=== PATIENT | male | born 1955 | race American Indian/Alaskan Native ===

== ENCOUNTER 2018-06-30 00:47 | Inpatient (IN) | payer MEDICAID ==
[2018-06-30] MEDS ORDERED: NACL 0.9% 1000 ML 1,000 ML IV ONE (01:11)
[2018-06-30 01:47] LABS: Basophils % (Auto) 0.7 % (0.0-1.8); Eosinophils # (Auto) 0.1 K/mm3 (0.0-0.4); Eosinophils % (Auto) 1.1 % (0.0-4.3); Hematocrit 43.2 % (35.5-45.6); Hemoglobin 14.1 gm/dl (11.8-15.2); Lymphocytes # (Auto) 1.3 K/mm3 (1.2-5.4); Lymphocytes % (Auto) 19.9 % (13.4-35.0); Mean Corpuscular HGB Conc 33 % (32-34); Mean Corpuscular Hemoglobin 27 pg (28-32); Mean Corpuscular Volume 82 fl (84-94); Monocytes # (Auto) 0.7 K/mm3 (0.0-0.8); Monocytes % (Auto) 9.9 % (0.0-7.3); Platelet Count 194 K/mm3 (140-440); Red Blood Count 5.26 M/mm3 (3.65-5.03); Red Cell Distribution Width 16.9 % (13.2-15.2)
[2018-06-30 02:09] LABS: Alanine Aminotransferase 14 units/L (7-56); Albumin 3.8 g/dL (3.9-5); BUN/Creatinine Ratio 26; Blood Urea Nitrogen 21 mg/dL (9-20); Calcium 9.8 mg/dL (8.4-10.2); Hemolysis Index 8
[2018-06-30] MEDS ORDERED: ZOFRAN ONE (03:22)
[2018-06-30] MEDS ORDERED: ZOFRAN IV ONE (03:28)
--- NOTE | 2018-06-30 03:35 | Emergency Department Report ---
ED Abdominal Pain HPI - General Chief Complaint: Abdominal Pain Stated Complaint: NOT EATING STOMACH PAIN Time Seen by Provider: 06/30/18 02:21 Source: patient, family Mode of arrival: Ambulatory Limitations: Physical Limitation, Other (mental state) - History of Present Illness Initial Comments: H/o obtained from Niece. For the past couple of weeks, pt has had a poor appetite. Today he was complaining of abd pain and started vomiting. So she brought him to the ER. Pt is currently being treated for depression. Wears dupens. Seen at [facility] last week for a penile ulcer and has been given urology follow up. Afebrile. When I ask the patient questions, he stares at me and doesn't respond. - Related Data Allergies Allergy/AdvReac Type Severity Reaction Status Date / Time No Known Allergies Allergy Unverified 06/30/18 00:57 ED Review of Systems ROS: Stated complaint: NOT EATING STOMACH PAIN Other details as noted in HPI Comment: Unobtainable due to pts medical conditions ED Past Medical Hx - Past Medical History Previous Medical History?: Yes Hx Hypertension: Yes Hx Seizures: Yes Hx Psychiatric Treatment: Yes (depression) Additional medical history: benign prostatic hyperplasia, congenital renal failure, UTI, ESBL - Surgical History Past Surgical History?: Yes Additional Surgical History: back - Social History Smoking Status: Current Every Day Smoker Substance Use Type: Alcohol ED Physical Exam - General Limitations: Physical Limitation, Other (mental state) General appearance: alert, in no apparent distress - Head Head exam: Present: atraumatic, normocephalic - Eye Eye exam: Present: normal appearance - ENT ENT exam: Present: mucous membranes moist - Neck Neck exam: Present: normal inspection - Respiratory Respiratory exam: Present: normal lung sounds bilaterally. Absent: respiratory distress - Cardiovascular Cardiovascular Exam: Present: regular rate, normal rhythm. Absent: systolic murmur, diastolic murmur, rubs, gallop - GI/Abdominal GI/Abdominal exam: Present: soft, normal bowel sounds. Absent: distended, tenderness, guarding, rebound - Rectal Rectal exam: Present: deferred - Extremities Exam Extremities exam: Present: normal inspection - Back Exam Back exam: Present: normal inspection - Neurological Exam Neurological exam: Present: alert - Psychiatric Psychiatric exam: Present: normal affect, normal mood - Skin Skin exam: Present: warm, dry, intact, normal color. Absent: rash ED Course Vital Signs 06/30/18 00:49 Temperature 98.3 F Pulse Rate 108 H Respiratory 18 Rate Blood Pressure 104/67 O2 Sat by Pulse 97 Oximetry ED Medical Decision Making - Lab Data Result diagrams: 06/30/18 01:28 06/30/18 01:28 - Radiology Data Radiology results: report reviewed - Medical Decision Making 63 yo male wiht pmhx depression, UTI, renal failure that p/w abd pain and vomiting. Pt is a poor historian. He will not talk to me in the ER. VS significant for an initial HR of 108. Labs are unremarkable. CT A/P shows no acute intraabdominal pathology. However, it did show an incidental RLL PE, which was confirmed on CT Chest. NO cause of the patient's abd pain has been found at this time. I am still waiting for the patient to provide a urine sample. He will be started on heparin and admitted in the interim. I have ordered an EKG/troponin, given the new dx of PE. - Differential Diagnosis sbo, pancreatitis, uti, sepsis, malignancy, gastroenteritis, diverticulitis Critical care attestation.: If time is entered above; I have spent that time in minutes in the direct care of this critically ill patient, excluding procedure time. ED Disposition Clinical Impression: Pulmonary embolus, Abdominal pain Disposition: DC-[id number] OP ADMIT IP TO THIS HOSP Is pt being admited?: Yes Does the pt Need Aspirin: No Condition: Stable Referrals: PRIMARY CARE, [Primary Care Provider] - 3-5 Days
--- NOTE | 2018-06-30 04:32 | Cat Scan Report ---
FINAL REPORT EXAM: CT ABDOMEN PELVIS W CON HISTORY: abd pain TECHNIQUE: Routine axial imaging was obtained of the abdomen and pelvis following the intravenous injection of 100 cc of Omnipaque 300. Delayed imaging was obtained through the kidneys ureters and bladder. Sagittal and coronal reconstructions were reviewed. FINDINGS: Images through the lung bases reveal several partially occlusive emboli in the right lower lobe pulmonary arteries. There are no infiltrates or effusions otherwise. The liver is normal size and reveal several benign-appearing cysts in both hepatic lobes measuring up to 7.9 mm in diameter. The gallbladder and biliary tree appear normal. The pancreas, spleen, and adrenal glands appear normal. The kidneys reveal small cortical cysts in the right kidney measuring with 12 millimeters in diameter. There is no evidence of hydronephrosis. The abdominal aorta is normal in caliber. The bowel loops are normal in caliber and course. The appendix is not enlarged. There is a small umbilical hernia containing omental fat. There is additional small supraumbilical midline hernia containing omental fat. Within the left-sided abdominal wall musculature is a benign intramuscular lipoma measuring 8.4 cm x 2.1 cm x 11.3 cm. In the pelvis there are multiple screws and plates from previous ORIF with multiple remote fractures. The prostate gland is mildly enlarged. The bladder appears normal. Free fluid is not seen. The skeletal structures otherwise reveal additional hardware in the lower lumbar spine. IMPRESSION: Several partially occlusive emboli in the right lower lobe pulmonary arteries. No acute process in the abdomen and pelvis otherwise. Small benign-appearing cysts in the liver and right kidney. Small umbilical hernia and additional supraumbilical abdominal hernia, both which contain omental fat. Extensive postsurgical changes involving the pelvis and lower lumbar spine from previous ORIF from multiple fractures. Left-sided anterior abdominal wall intramuscular lipoma. Mild prostatic enlargement.
--- NOTE | 2018-06-30 05:41 | Cat Scan Report ---
FINAL REPORT EXAM: CT ANGIO CHEST HISTORY: concern for PE, incidental finding on CT A/P TECHNIQUE: A CT angiogram was obtained of the thorax following the intravenous injection of 100 cc of Omnipaque 350. Correlation is made to the earlier CT scan of the abdomen and pelvis. MIP rotational, sagittal, and coronal reconstructions were reviewed. FINDINGS: There are multiple partially occlusive emboli in the right lower lobe pulmonary arteries. There are no additional emboli in the left lung or within the right lung. There is no evidence of right heart strain. The heart size is normal. The thoracic aorta is mildly tortuous. There is no evidence of aortic dissection. Adenopathy is not seen. The heart size is normal. Pericardial fluid is not identified. The skeletal structures reveal multilevel disc degeneration in the dorsal spine. There are multiple well healed left-sided rib fractures along with chronic fracture deformities of the left scapula. IMPRESSION: Multiple partially occlusive emboli in the right lower lobe pulmonary arteries as previously described. No additional emboli in the lungs. No evidence of right heart strain. No evidence of aortic dissection or vascular congestion. Multiple well-healed left-sided rib and left scapular fracture deformities.
[2018-06-30] MEDS ORDERED: TYLENOL PO PRN (06:26)
[2018-06-30] MEDS ORDERED: ZOFRAN IV PRN (06:26)
[2018-06-30] MEDS ORDERED: SODIUM CHLORIDE FLUSH SYRINGE 10 ML IV PRN (06:26)
[2018-06-30] MEDS ORDERED: K-DUR PO ONE (06:28)
--- NOTE | 2018-06-30 06:34 | History and Physical Report ---
History of Present Illness Date of examination: 06/30/18 History of present illness: 62-year-old man with a history of hypertension, depression, seizure, BPH, congenital renal failure, penile ulcers was brought to the emergency room today for evaluation because he complained of abdominal pain, had nausea and vomiting. The niece just came from [place] 3 weeks ago to care for him here in [place]. The family wanted to get him off the street, as he was involved in substance abuse. Patient is for eye contact, offers very little information. Niece stated that he has been in bed most of the time, eats very little. Review of system is unobtainable. Stated that he had some shortness of breath but refused to say when it started. He was seen at [place] recently, and was treated for the penile ulcer, UTI. She stated that he had some hematuria at the time PAST MEDICAL HISTORY: hypertension, depression, seizure, BPH, congenital renal failure, penile ulcers PAST SURGICAL HISTORY: Back surgery SOCIAL HISTORY: Smokes, no alcohol or cocaine, opiates use since in [place] FAMILY HISTORY: Hypertension Medications and Allergies Allergies Allergy/AdvReac Type Severity Reaction Status Date / Time No Known Allergies Allergy Unverified 06/30/18 00:57 Active Meds: Active Medications Acetaminophen (Tylenol) 650 mg PO Q4H PRN PRN Reason: Pain MILD(1-3)/Fever >100.5/[place] Ondansetron HCl (Zofran) 4 mg IV Q4H PRN PRN Reason: Nausea And Vomiting Sodium Chloride (Sodium Chloride Flush Syringe 10 Ml) 10 ml IV BID MAURI Sodium Chloride (Sodium Chloride Flush Syringe 10 Ml) 10 ml IV PRN PRN PRN Reason: LINE FLUSH Exam - Physical Exam Narrative exam: Gen. appearance: Patient lying in bed, no apparent distress HEENT: Normocephalic, atraumatic, pupils equally round and reactive to light, extraocular movement intact, and no sclericterus,. No JVD or thyromegaly or nodule,neck supple, no carotid bruit ,mucous membranes moist, no exudate or erythema Heart: S1, S2, regular rate and rhythm Lungs: Clear bilaterally, breathing comfortable Abdomen: Positive bowel sounds, non-tender, nondistended, no organomegaly Extremity:no edema cyanosis, clubbing Skin: no rash, dry, warm, shallow penile ulcers Neuro: Oriented 3, cranial nerves II-12 intact, speech is fluent, motor and sensory intact - Constitutional Vitals: Temp Pulse Resp BP Pulse Ox 98.3 F 108 H 18 104/67 97 06/30/18 00:49 06/30/18 00:49 06/30/18 00:49 06/30/18 00:49 06/30/18 00:49 Results - Labs CBC & Chem 7: 06/30/18 01:28 06/30/18 01:28 Labs: Abnormal lab results 06/30/18 06/30/18 Range/Units 01:28 01:28 RBC 5.26 H (3.65-5.03) M/mm3 MCV 82 L (84-94) fl MCH 27 L (28-32) pg RDW 16.9 H (13.2-15.2) % [place] % (Auto) 9.9 H (0.0-7.3) % Potassium 3.3 L (3.6-5.0) mmol/L Chloride 95.6 L (98-107) mmol/L BUN 21 H (9-20) mg/dL Glucose 101 H (75-100) mg/dL Albumin 3.8 L (3.9-5) g/dL - Imaging and Cardiology CT scan - abdomen: report reviewed CT scan - chest: report reviewed CT scan - pelvis: report reviewed Assessment and Plan Assessment Acute pulmonary emboli Dehydration hypertension depression seizure BPH congenital renal failure penile ulcers Plan Admit to medicine Start heparin Drip, IV fluids, check Dopplers of lower extremity Consult psych Continue his medications DVT prophylaxis
[2018-06-30] MEDS ORDERED: HEPARIN 10,000 UNITS/10 ML IV ONE (07:21)
[2018-06-30 07:25] LABS: INR 1.02 (0.87-1.13)
[2018-06-30 07:26] LABS: Partial Thromboplastin Time 26.9 Sec. (24.2-36.6)
[2018-06-30] MEDS ORDERED: HEPARIN 10,000 UNITS/10 ML ONE (07:40)
[2018-06-30 08:40] LABS: Hematocrit 43.9 % (35.5-45.6); Hemoglobin 14.6 gm/dl (11.8-15.2)
[2018-06-30] MEDS: HEPARIN/ 0.45% NACL-25,000 UNIT/500 ML 25,000 UNIT/500 ML BAG IV SCH (08:42)
[2018-06-30] MEDS: NACL 0.9% 1000 ML 1,000 ML IV SCH ×2 (08:42→22:59)
[2018-06-30 09:21] LABS: INR 1.09 (0.87-1.13)
[2018-06-30 09:26] LABS: Partial Thromboplastin Time 62.3 Sec. (24.2-36.6)
[2018-06-30] MEDS: SODIUM CHLORIDE FLUSH SYRINGE 10 ML IV SCH ×2 (10:23→23:00)
--- NOTE | 2018-06-30 13:49 | Event Note ---
Date: 06/30/18 Patient was seen and evaluated this morning, H&P, imaging and labs were reviewed. Patient is admitted for the management of PE, currently on heparin. Continue management per H/P. If continue to be stable i will discharge with MOUNIKA zaman tomorrow.
[2018-06-30] MEDS: REMERON PO SCH (23:00)
[2018-06-30] MEDS: KEPPRA PO SCH (23:00)
[2018-06-30] MEDS: PEPCID PO SCH (23:00)
[2018-07-01 05:54] LABS: Basophils # (Auto) 0.1 K/mm3 (0.0-0.1); Basophils % (Auto) 1.2 % (0.0-1.8); Eosinophils # (Auto) 0.1 K/mm3 (0.0-0.4); Eosinophils % (Auto) 1.4 % (0.0-4.3); Hematocrit 39.7 % (35.5-45.6); Lymphocytes # (Auto) 1.9 K/mm3 (1.2-5.4); Lymphocytes % (Auto) 35.3 % (13.4-35.0); Mean Corpuscular HGB Conc 33 % (32-34); Mean Corpuscular Hemoglobin 27 pg (28-32); Mean Corpuscular Volume 82 fl (84-94); Monocytes # (Auto) 0.7 K/mm3 (0.0-0.8); Monocytes % (Auto) 12.5 % (0.0-7.3); Platelet Count 170 K/mm3 (140-440); Red Blood Count 4.84 M/mm3 (3.65-5.03); Red Cell Distribution Width 16.7 % (13.2-15.2)
[2018-07-01 06:15] LABS: BUN/Creatinine Ratio 14; Blood Urea Nitrogen 10 mg/dL (9-20); Calcium 8.8 mg/dL (8.4-10.2); Hemolysis Index 7
[2018-07-01] MEDS ORDERED: CARDURA PO SCH (10:00)
[2018-07-01] MEDS ORDERED: POTASSIUM CHLORIDE FEEDTUBE NR (10:00)
[2018-07-01] MEDS: PEPCID PO SCH ×2 (10:10→21:31)
[2018-07-01] MEDS: ZESTRIL PO SCH (10:10)
[2018-07-01] MEDS: KEPPRA PO SCH ×2 (10:10→21:31)
[2018-07-01] MEDS: HALFPRIN EC PO SCH (10:10)
[2018-07-01] MEDS: SODIUM CHLORIDE FLUSH SYRINGE 10 ML IV SCH ×2 (10:11→21:32)
--- NOTE | 2018-07-01 13:14 | Consultation ---
History of Present Illness - Reason for Consult Consult date: 07/01/18 Reason for consult: Mental Health Evaluation Requesting physician: AGUILAR BARKER - Chief Complaint Chief complaint: "Can you come back tomorrow" - History of Present Psychiatric Illness 62-year-old man with a history of hypertension, seizure, BPH, congenital renal failure, penile ulcers was brought to the emergency room today for evaluation because he complained of abdominal pain and N/V. Psychiatry was consulted to see patient for possible depression. Today the patient is calm, but asked to be seen tomorrow. He stated, "I rather talk tomorrow." Per the record, the patient isn't on a 1013. No gestures of SI/HI's. Medications and Allergies Allergies Allergy/AdvReac Type Severity Reaction Status Date / Time No Known Allergies Allergy Unverified 06/30/18 00:57 Home Medications Medication Instructions Recorded Confirmed Last Taken Type Aspirin EC [Aspirin Enteric Coated 81 mg PO QDAY 06/30/18 06/30/18 Unknown History TAB] Atorvastatin Calcium [Lipitor] 40 mg PO QHS 06/30/18 07/01/18 Unknown History Collagenase [Santyl] 1 applicatio TP QDAY 06/30/18 06/30/18 Unknown History Doxazosin Mesylate [Cardura] 4 mg PO DAILY 06/30/18 07/01/18 Unknown History Dutasteride 0.5 mg PO DAILY 06/30/18 07/01/18 Unknown History Famotidine [Pepcid] 20 mg PO DAILY 06/30/18 07/01/18 Unknown History Lisinopril [Prinivil] 5 mg PO DAILY 06/30/18 07/01/18 Unknown History Nystatin [Nystop Powder] 15 gm TP DAILY 06/30/18 07/01/18 Unknown History Thiamine [Vitamin B-1] 100 mg PO DAILY 06/30/18 07/01/18 Unknown History levETIRAcetam [Keppra] 500 mg PO BID 06/30/18 07/01/18 Unknown History Active Meds: Active Medications Acetaminophen (Tylenol) 650 mg PO Q4H PRN PRN Reason: Pain MILD(1-3)/Fever >100.5/[place] Aspirin (Halfprin Ec) 81 mg PO QDAY MAURI Last Admin: 07/01/18 10:10 Dose: 81 mg Atorvastatin Calcium (Lipitor) 40 mg PO QHS [facility] Last Admin: 06/30/18 23:00 Dose: 40 mg Doxazosin Mesylate (Cardura) 4 mg PO QDAY [facility] Last Admin: 07/01/18 10:10 Dose: 4 mg Famotidine (Pepcid) 20 mg PO BID [facility] Last Admin: 07/01/18 10:10 Dose: 20 mg Sodium Chloride (Nacl 0.9% 1000 Ml) 1,000 mls @ 75 mls/hr IV DIRECT [facility] Last Admin: 06/30/18 22:59 Dose: 75 mls/hr Heparin Sodium/Sodium Chloride (Heparin/ 0.45% Nacl-25,000 Unit/500 Ml) 25,000 unit in 500 mls @ 18 mls/hr IV TITR [facility]; Protocol Last Titration: 07/01/18 06:18 Dose: 850 units/hr, 17 mls/hr Levetiracetam (Keppra) 500 mg PO BID [facility] Last Admin: 07/01/18 10:10 Dose: 500 mg Lisinopril (Zestril) 5 mg PO QDAY [facility] Last Admin: 07/01/18 10:10 Dose: Not Given Mirtazapine (Remeron) 15 mg PO QHS [facility] Last Admin: 06/30/18 23:00 Dose: 15 mg Ondansetron HCl (Zofran) 4 mg IV Q4H PRN PRN Reason: Nausea And Vomiting Sodium Chloride (Sodium Chloride Flush Syringe 10 Ml) 10 ml IV BID [facility] Last Admin: 07/01/18 10:11 Dose: 10 ml Sodium Chloride (Sodium Chloride Flush Syringe 10 Ml) 10 ml IV PRN PRN PRN Reason: LINE FLUSH Past psychiatric history - Past Medical History Past Medical History: hypertension Past Surgical History: Other (Unable to obtain) - past Psychiatric treatment and history psychiatric treatment history: Unable to obtain a psy hx and fam psy hx. The patient would like to be seen tomorrow. - Social History Social history: other (Unable to obtain) Mental Status Exam - Vital signs Last Vital Signs Temp 98.6 F 07/01/18 11:23 Pulse 76 07/01/18 11:23 Resp 16 07/01/18 11:23 BP 110/67 07/01/18 11:23 Pulse Ox 99 07/01/18 11:23 - Exam Narrative exam: Unable to complete the MSE because the patient refused to cooperate. Results Result Diagrams: 07/01/18 04:58 07/01/18 04:58 Abnormal lab results 06/30/18 06/30/18 07/01/18 Range/Units 14:48 21:51 04:58 MCV 82 L (84-94) fl MCH 27 L (28-32) pg RDW 16.7 H (13.2-15.2) % Lymph % (Auto) 35.3 H (13.4-35.0) % [place] % (Auto) 12.5 H (0.0-7.3) % Heparin Anti-Xa Level 0.19 L 0.79 H (0.3-0.7) U.I./ml Potassium (3.6-5.0) mmol/L Creatinine (0.8-1.5) mg/dL Glucose (75-100) mg/dL 07/01/18 07/01/18 Range/Units 04:58 04:58 MCV (84-94) fl MCH (28-32) pg RDW (13.2-15.2) % Lymph % (Auto) (13.4-35.0) % [place] % (Auto) (0.0-7.3) % Heparin Anti-Xa Level 0.74 H (0.3-0.7) U.I./ml Potassium 3.3 L (3.6-5.0) mmol/L Creatinine 0.7 L (0.8-1.5) mg/dL Glucose 74 L (75-100) mg/dL All other labs normal. Assessment and Plan Assessment and plan: Impression: Today the patient is calm, but asked to be seen tomorrow. Recommendation/Plan: The psychiatry team was attempt to reassess patient in 24 hours.
[2018-07-01] MEDS: NACL 0.9% 1000 ML 1,000 ML IV SCH (14:38)
[2018-07-01] MEDS: HEPARIN/ 0.45% NACL-25,000 UNIT/500 ML 25,000 UNIT/500 ML BAG IV SCH (14:40)
[2018-07-01] MEDS ORDERED: K-DUR PO ONE (15:00)
--- NOTE | 2018-07-01 15:03 | Progress Note ---
Assessment and Plan Assessment and plan: 62-year-old man with a history of hypertension, depression, seizure, BPH, congenital renal failure, penile ulcers was brought to the emergency room today for evaluation because he complained of abdominal pain, had nausea and vomiting. The niece just came from [place] 3 weeks ago to care for him here in [place]. The family wanted to get him off the street, as he was involved in substance abuse. Patient is for eye contact, offers very little information. Niece stated that he has been in bed most of the time, eats very little. Review of system is unobtainable. Stated that he had some shortness of breath but refused to say when it started. He was seen at [place] recently, and was treated for the penile ulcer, UTI. She stated that he had some hematuria at the time. CTA chest showed right lobe PE - Patient is on IV heparin Bipolar disorder - psych consulted HTN - continue home medications Disposition - continue inpatient care. History Interval history: Patient was seen and evaluated this morning, patient didn't have any SOB. Hospitalist Physical - Physical exam Narrative exam: Not in cardiopulmonary distress. The patient appeared well nourished and normally developed. Vital signs as documented. Head exam is unremarkable. No scleral icterus . Neck is without jugular venous distension, thyromegaly, or carotid bruits. Lungs are clear to auscultation. Cardiac exam reveals regular rate and Rhythm. Abdominal exam reveals normal bowel sounds. Extremities are nonedematous and both femoral and pedal pulses are normal. LACE ROLLER: Alert and oriented. No focal weakness. - Constitutional Vitals: Temp Pulse Resp BP Pulse Ox 98.6 F 76 16 110/67 99 07/01/18 11:23 07/01/18 11:23 07/01/18 11:23 07/01/18 11:23 07/01/18 11:23 Results - Labs CBC & Chem 7: 07/01/18 04:58 07/01/18 04:58 Labs: Laboratory Last Values WBC 5.5 K/mm3 (4.5-11.0) 07/01/18 04:58 RBC 4.84 M/mm3 (3.65-5.03) 07/01/18 04:58 Hgb 13.0 gm/dl (11.8-15.2) 07/01/18 04:58 Hct 39.7 % (35.5-45.6) 07/01/18 04:58 MCV 82 fl (84-94) L 07/01/18 04:58 MCH 27 pg (28-32) L 07/01/18 04:58 MCHC 33 % (32-34) 07/01/18 04:58 RDW 16.7 % (13.2-15.2) H 07/01/18 04:58 Plt Count 170 K/mm3 (140-440) 07/01/18 04:58 Lymph % (Auto) 35.3 % (13.4-35.0) H 07/01/18 04:58 [place] % (Auto) 12.5 % (0.0-7.3) H 07/01/18 04:58 Eos % (Auto) 1.4 % (0.0-4.3) 07/01/18 04:58 Baso % (Auto) 1.2 % (0.0-1.8) 07/01/18 04:58 Lymph # 1.9 K/mm3 (1.2-5.4) 07/01/18 04:58 [place] # 0.7 K/mm3 (0.0-0.8) 07/01/18 04:58 Eos # 0.1 K/mm3 (0.0-0.4) 07/01/18 04:58 Baso # 0.1 K/mm3 (0.0-0.1) 07/01/18 04:58 Seg Neutrophils % 49.6 % (40.0-70.0) 07/01/18 04:58 Seg Neutrophils # 2.7 K/mm3 (1.8-7.7) 07/01/18 04:58 PT 14.7 Sec. (12.2-14.9) 06/30/18 08:16 INR 1.09 (0.87-1.13) 06/30/18 08:16 APTT 62.3 Sec. (24.2-36.6) H* 06/30/18 08:16 Heparin Anti-Xa Level 0.76 U.I./ml (0.3-0.7) H 07/01/18 12:50 Sodium 140 mmol/L (137-145) 07/01/18 04:58 Potassium 3.3 mmol/L (3.6-5.0) L 07/01/18 04:58 Chloride 103.7 mmol/L (98-107) 07/01/18 04:58 Carbon Dioxide 24 mmol/L (22-30) 07/01/18 04:58 Anion Gap 16 mmol/L 07/01/18 04:58 BUN 10 mg/dL (9-20) 07/01/18 04:58 Creatinine 0.7 mg/dL (0.8-1.5) L 07/01/18 04:58 Estimated GFR > 60 ml/min 07/01/18 04:58 BUN/Creatinine Ratio 14 % 07/01/18 04:58 Glucose 74 mg/dL (75-100) L 07/01/18 04:58 Calcium 8.8 mg/dL (8.4-10.2) 07/01/18 04:58 Total Bilirubin 0.60 mg/dL (0.1-1.2) 06/30/18 01:28 AST 17 units/L (5-40) 06/30/18 01:28 ALT 14 units/L (7-56) 06/30/18 01:28 Alkaline Phosphatase 73 units/L (35-129) 06/30/18 01:28 Troponin T 0.011 ng/mL (0.00-0.029) 06/30/18 05:50 Total Protein 7.4 g/dL (6.3-8.2) 06/30/18 01:28 Albumin 3.8 g/dL (3.9-5) L 06/30/18 01:28 Albumin/Globulin Ratio 1.1 % 06/30/18 01:28
[2018-07-01] MEDS: REMERON PO SCH (21:31)
[2018-07-01] MEDS ORDERED: NACL 0.9% 500 ML 500 ML IV ONE (22:51)
[2018-07-02 05:05] LABS: Hematocrit 38.9 % (35.5-45.6); Hemoglobin 13.2 gm/dl (11.8-15.2); Mean Corpuscular HGB Conc 34 % (32-34); Mean Corpuscular Hemoglobin 28 pg (28-32); Mean Corpuscular Volume 82 fl (84-94); Platelet Count 191 K/mm3 (140-440); Red Blood Count 4.74 M/mm3 (3.65-5.03); Red Cell Distribution Width 17.2 % (13.2-15.2)
[2018-07-02 05:29] LABS: BUN/Creatinine Ratio 12; Blood Urea Nitrogen 7 mg/dL (9-20); Calcium 8.7 mg/dL (8.4-10.2); Hemolysis Index 107
[2018-07-02] MEDS: NACL 0.9% 1000 ML 1,000 ML IV SCH (05:45)
[2018-07-02 06:51] LABS: Basophils % (Manual) 0 % (0.0-1.8); Eosinophils % (Manual) 0 % (0.0-4.3); Total Cells Counted 100
[2018-07-02 06:52] LABS: Anisocytosis 1+; Burr Cells Few; Platelet Estimate Consistent w Auto
[2018-07-02 09:32] VITALS: BP 134/87
[2018-07-02] MEDS: HALFPRIN EC PO SCH (10:09)
[2018-07-02] MEDS: ZESTRIL PO SCH (10:09)
[2018-07-02] MEDS: PEPCID PO SCH (10:09)
[2018-07-02] MEDS: KEPPRA PO SCH (10:09)
[2018-07-02] MEDS: SODIUM CHLORIDE FLUSH SYRINGE 10 ML IV SCH (10:11)
--- NOTE | 2018-07-02 10:21 | Discharge Summary ---
Providers - Providers Date of Admission: 06/30/18 06:26 Attending physician: AGUILAR BARKER MD 06/30/18 06:35 psychiatry consult [Consult to Mental Health] [CONS] Routine Reason For Exam: depression Place consult to:: psych Notified:: yes Was contact made?: Yes If yes, spoke with:: shanice Time called:: 09:14 07/02/18 04:33 Consult to Wound/ET Nurse [CONS] Urgent Reason For Exam: wound eval Primary care physician: FIELD REIMBURSEMENT MANAGER Hospitalization Reason for admission: Acute PE Condition: Stable Pertinent studies: CTA IMPRESSION: Multiple partially occlusive emboli in the right lower lobe pulmonary arteries as previously described. No additional emboli in the lungs. No evidence of right heart strain. No evidence of aortic dissection or vascular congestion. Multiple well-healed left-sided rib and left scapular fracture deformities. CT abdomen and pelvis Several partially occlusive emboli in the right lower lobe pulmonary arteries. No acute process in the abdomen and pelvis otherwise. Small benign-appearing cysts in the liver and right kidney. Small umbilical hernia and additional supraumbilical abdominal hernia, both which contain omental fat. Extensive postsurgical changes involving the pelvis and lower lumbar spine from previous ORIF from multiple fractures. Left-sided anterior abdominal wall intramuscular lipoma. Mild prostatic enlargement. Hospital course: 62-year-old man with a history of hypertension, depression, seizure, BPH, congenital renal failure, penile ulcers was brought to the emergency room today for evaluation because he complained of abdominal pain, had nausea and vomiting. The niece just came from [place] 3 weeks ago to care for him here in [place]. The family wanted to get him off the street, as he was involved in substance abuse. Patient is for eye contact, offers very little information. Niece stated that he has been in bed most of the time, eats very little. Review of system is unobtainable. Stated that he had some shortness of breath but refused to say when it started. He was seen at [place] recently, and was treated for the penile ulcer, UTI. She stated that he had some hematuria at the time. CTA chest showed right lobe PE - was initially treated with IV heparin drip and changed to Eliquis at the time of discharge Bipolar disorder - Needs out patient follow up HTN controlled continue home medications Patient was hemodynamically stable at the time of discharge, appropriate home medications were refilled. Patient discharged home. Disposition: DC-01 TO HOME OR SELFCARE Time spent for discharge: 32 minutes - Discharge Diagnoses (1) Pulmonary embolus Status: Acute (2) Bipolar disorder Status: Chronic (3) Hypertension Status: Chronic (4) Seizure Status: Chronic Core Measure Documentation - Palliative Care Palliative Care/ Comfort Measures: Not Applicable - Core Measures Any of the following diagnoses?: DVT/PE - VTE Discharge Requirements Deep Vein Thrombosis/Pulmonary Embolism Present on Admission: Yes Has pt received <5 days of overlap therapy or INR<2.0: Yes Anticoagulant overlap therapy prescribed at discharge: No Contraindication No Overlap Therapy order at DC: Not Indicated Exam - Physical Exam Narrative exam: Not in cardiopulmonary distress. The patient appeared well nourished and normally developed. Vital signs as documented. Head exam is unremarkable. No scleral icterus . Neck is without jugular venous distension, thyromegaly, or carotid bruits. Lungs are clear to auscultation. Cardiac exam reveals regular rate and Rhythm. Abdominal exam reveals normal bowel sounds. Extremities are nonedematous and both femoral and pedal pulses are normal. PRODUCT SAFETY COORDINATOR: Alert and oriented. No focal weakness. - Constitutional Vitals: Temp Pulse Resp BP Pulse Ox 99.0 F 75 16 134/87 98 07/02/18 07:54 07/02/18 09:27 07/02/18 07:54 07/02/18 07:54 07/02/18 08:24 Plan Activity: no restrictions Weight Bearing Status: Full Weight Bearing Diet: regular Additional Instructions: Follow up at [facility] in 1-2 weeks Follow up with: PRIMARY CARE, [Primary Care Provider] - 3-5 Days Forms: Discharge Signature Page Prescriptions: Atorvastatin Calcium [Lipitor] 40 mg PO QHS #30 tablet Mirtazapine [Remeron] 15 mg PO QHS #30 tablet Apixaban [Eliquis] 5 mg PO BID #74 tablet Aspirin EC [Aspirin Enteric Coated TAB] 81 mg PO QDAY #30 tablet Doxazosin Mesylate [Cardura] 4 mg PO DAILY #30 tablet Famotidine [Pepcid] 20 mg PO DAILY #30 tablet levETIRAcetam [Keppra] 500 mg PO BID #60 tablet Lisinopril [Prinivil] 5 mg PO DAILY #30 tablet
== END 2018-07-02 19:12 | disposition home or self-care (01) | DRG 176 ==
LOC: ED 00:47 → 4A 06:26
PROVIDERS: ADMIT Internal Medicine; ATTEND Internal Medicine
DX: I26.99 Other pulmonary embolism without acute cor pulmonale (principal); I10 Essential (primary) hypertension; N40.0 Benign prostatic hyperplasia without lower urinary tract symptoms; F17.200 Nicotine dependence, unspecified, uncomplicated; E86.0 Dehydration; F31.30 Bipolar disorder, current episode depressed, mild or moderate severity, unspecified; P96.0 Congenital renal failure; Z82.49 Family history of ischemic heart disease and other diseases of the circulatory system; Z79.82 Long term (current) use of aspirin; Z79.899 Other long term (current) drug therapy
CPT/HCPCS: 36415; 71275; 74177; 80048; 80053; 84484; 85007; 85014; 85018; 85025; 85049; 85520; 85610; 85730; 93005; 93010; 96361; 96365; 96375; 99406; A9270-GY; J1644; J2405; J7030; J7040; Q9967